=== PATIENT | female | born 1970 | race Caucasian/White ===

== ENCOUNTER → 2024-07-10 18:04 | Outpatient (REF) | payer OTHER, SELFPAY | LOC: WDC 18:04 | PROVIDERS: ATTENDING PHYSICIAN Obstetrics & Gynecology Gynecology; FAMILY PHYSICIAN Family Medicine | DX: Z12.31 Encounter for screening mammogram for malignant neoplasm of breast (principal) | CPT/HCPCS: 77063; 77067 ==

== ENCOUNTER 2024-07-28 00:17 | Emergency (ER) | payer OTHER, SELFPAY ==
[2024-07-28 00:23] VITALS: BP 109/73
--- NOTE | 2024-07-28 02:45 | ED.GENMED ---
History of Present Illness
General
Chief Complaint: Musculo-Skeletal Complaint
Source: patient
Exam Limitations: none
Time Seen by Provider: 07/28/24 02:35
Nursing documentation reviewed up to this point in time: agreed with
History of Present Illness
History of Present Illness:
This is a 54-year-old woman with no significant past medical history who states she twisted her ankle yesterday evening. Initially with only mild pain, continued to ambulate, walk up and down steps excetra but left ankle pain worsened throughout
the evening and is much worse tonight, throbbing in nature, unable to sleep due to ankle pain. She denies weakness nor numbness, no back pain no neck pain, no chest pain or abdominal pain.
She did take ibuprofen 400 mg around 10:30 PM with only mild improvement in pain.
No prior history of ankle injuries.
Past History
Past History
ED Past Medical History: None
ED Past Surgical History: None
Social History
Tobacco: Non-smoker
Personal:
Living: with family
Employment: Employed
Family History
Family History: Other (Noncontributory)
Phy Exam
Physical Exam
Physical Exam:
GENERAL: 54-year-old woman appears her stated age, awake and alert, pleasant, appears in no acute distress. Accompanied by her .
The head is normocephalic, atraumatic.
NECK: Supple, nontender
ENT: oral mucosa is moist. No rhinorrhea.
CARDIAC: Regular rate and rhythm. no murmur.
LUNGS: Clear breath sounds bilaterally, no acute respiratory distress, no wheezes/rales/rhonchi
ABDOMEN: Soft, nondistended, without focal tenderness
NEUROLOGICAL: Alert and oriented x3, no focal neuro deficits.
SKIN: Warm and dry, normal color, skin intact. No rash.
MUSCULOSKELETAL: No C/C/E. peripheral pulses are full and equal b/l. Left ankle has very mild soft tissue swelling laterally with moderate tenderness anterior to the lateral ankle, minimal tenderness proximal left lateral foot. Mildly restricted
active range of motion related to pain. There is full passive range of motion with increased pain with inversion, dorsiflexion. No crepitus. No ecchymosis. Peripheral pulses are full and equal. No gross deformities.
PSYCH: Normal and appropriate interaction.
Course
Orders/Labs/Results
Orders:
Orders
07/28/24 00:28
CR Ankle - Left Min 3 Views Urgent
Comment:
Reason For Exam: injury and pain
Foot, Left 3 View [CR Foot - Left Min 3 Views] Urgent
Comment:
Reason For Exam: injury and pain.
07/28/24 02:44
Ortho Boot Left- Treatment ONCE
Short or tall?: Tall
Ibuprofen [Motrin] 600 mg PO NOW STA
Vital Signs
Initial and Last Documented VS:
Initial Vital Signs
Pulse Resp BP Pulse Ox
83 18 109/73 100
07/28/24 00:23 07/28/24 00:23 07/28/24 00:23 07/28/24 00:23
Last Documented Vital Signs
Temp Pulse Resp BP Pulse Ox
97.9 F 83 18 109/73 100
07/28/24 00:27 07/28/24 00:23 07/28/24 00:23 07/28/24 00:23 07/28/24 00:23
MDM/Problems Addressed
Differential Diagnosis Includes:
Concern for left ankle sprain, concern for occult fracture.
X-ray left ankle and left foot show no evidence of fracture. Normal alignment.
Will place an Ortho boot and give additional dose of Motrin now for pain. Patient has been offered IM dose of Toradol which she declines.
If she does well with ambulation with Ortho boot we will hold off on crutches.
Will prescribe ibuprofen 600 mg for as needed pain.
Discussed importance of ice, elevation.
Will refer to orthopedics for follow-up as needed.
*Radiology
Radiology exam reviewed: preliminary read by ED provider (Left ankle, left foot show no evidence of fracture.)
*Pulse Oximetry
Patient hypoxic: no
*Critical Care Note
Total Time (30-74mins, 75-104mins- exclusive of procedures): Not Applicable
ED Attending Note
-
Portions of this chart may have been created with voice recognition software.� Occasional wrong word or��sound alike� substitutions may have occurred due to the inherent limitations of voice recognition software.
Discharge Plan
Departure
Patient Disposition: Home (Routine Discharge)
Date of Disposition: 07/28/24
Time of Disposition: 02:49
Patient with high blood pressure during this ER visit?: No
Condition: Good
Discharge Problem:
Mild sprain of left ankle
Instructions: Ankle sprain - ED discharge instructions
Prescriptions:
New
ibuprofen 600 mg tablet
600 mg PO QID PRN (Reason: fever or pain) Qty: 20 0RF
No Action
diclofenac sodium 75 MG tablet,delayed release (DR/EC)
75 mg PO BID Qty: 10 0RF
doxycycline hyclate 100 MG capsule
100 mg PO Q12 14 Days 0RF
Referrals:
Rush Griffin MD [Active] - As needed
Gem Woods MD [Family Provider] - Call in 1-3 days for appt
Discharge Date and Time
Print Language: [place]
[2024-07-28] MEDS: MOTRIN 600 MG PO (02:54)
== END 2024-07-28 03:26 | disposition home or self-care (01) ==
LOC: EMR 00:17
PROVIDERS: EMERGENCY PHYSICIAN Emergency Medicine; FAMILY PHYSICIAN Family Medicine
DX: S93.402A Sprain of unspecified ligament of left ankle, initial encounter (principal); X50.1XXA Overexertion from prolonged static or awkward postures, initial encounter
CPT/HCPCS: 99283; 73610; 73630